=== PATIENT | male | born 1950 | race Caucasian/White ===

== ENCOUNTER 2017-01-01 19:21 | Emergency (ER) | payer MEDICARE, OTHER ==
[~2017-01-01] VITALS: Ht 195.6 cm; Wt 123.7 kg
[2017-01-01 19:23] VITALS: BP 137/77
[2017-01-01] MEDS ORDERED: LIDOCAINE 1%, 20ML SQ ONE (20:00)
[2017-01-01] MEDS ORDERED: LIDOCAINE 1%, 20ML ONE ×2 (20:33→22:26)
[2017-01-01] MEDS ORDERED: BUPIVACAINE 0.25% ONE (20:38)
[2017-01-01] MEDS ORDERED: BUPIVACAINE 0.25% INFIL ONE (21:30)
[2017-01-01] MEDS ORDERED: DIPH,PERTUSS(ACELL),TET VAC/PF 0.5 ML IM-VACC ONE ×2 (21:30→21:43)
[2017-01-01] MEDS ORDERED: CEFAZOLIN 1,000 MG ONE (22:25)
[2017-01-01] MEDS ORDERED: ONDANSETRON ODT 4 MG ONE (22:25)
[2017-01-01] MEDS ORDERED: OXYcodone/APAP 5/325MG TABLET ONE (22:25)
[2017-01-01] MEDS ORDERED: ONDANSETRON ODT 4 MG PO ONE (22:30)
[2017-01-01] MEDS ORDERED: CEFAZOLIN 1,000 MG IM ONE (22:30)
[2017-01-01] MEDS ORDERED: OXYcodone/APAP 5/325MG TABLET PO ONE (22:30)
== END 2017-01-01 22:48 | disposition home or self-care (01) ==
LOC: ED 22:42
DX: S92.421A Displaced fracture of distal phalanx of right great toe, initial encounter for closed fracture (principal); S91.211A Laceration without foreign body of right great toe with damage to nail, initial encounter; W20.8XXA Other cause of strike by thrown, projected or falling object, initial encounter; Y93.89 Activity, other specified; Y92.89 Other specified places as the place of occurrence of the external cause; Y99.8 Other external cause status
CPT/HCPCS: 11760; 73660; 90471; 90715; 96372; 99284; J0690; Q0162

== ENCOUNTER 2017-01-11 11:56 | Emergency (ER) | payer MEDICARE ==
[~2017-01-11] VITALS: Ht 195.6 cm; Wt 123.9 kg
[2017-01-11 12:11] VITALS: BP 136/89
== END 2017-01-11 12:43 | disposition home or self-care (01) ==
LOC: ED 12:10
DX: S91.112D Laceration without foreign body of left great toe without damage to nail, subsequent encounter (principal); W20.8XXD Other cause of strike by thrown, projected or falling object, subsequent encounter; Y92.89 Other specified places as the place of occurrence of the external cause; Y99.8 Other external cause status
CPT/HCPCS: 99281

== ENCOUNTER 2018-10-25 11:36 | Emergency (ER) | payer MEDICARE ==
[~2018-10-25] VITALS: Ht 195.6 cm; Wt 118.0 kg
[2018-10-25 12:30] LABS: BASOPHILS # (AUTO) 0.01 x10^3/uL (0-0.1); BASOPHILS % (AUTO) 0 % (0-1); EOSINOPHILS # (AUTO) 0.13 x10^3/uL (0-0.4); EOSINOPHILS % (AUTO) 2 % (1-7); LYMPHOCYTES # (AUTO) 1.18 x10^3/uL (1-3.4); LYMPHOCYTES % (AUTO) 18 % (22-44); MD NO; MEAN CORPUSCULAR HEMOGLOBIN 30.4 pg (27.5-34.5); MEAN CORPUSCULAR HGB CONC 33.4 g/dL (33.2-36.2); MEAN PLATELET VOLUME 8.2 fL (7.4-10.4); MONOCYTES # (AUTO) 0.52 x10^3/uL (0.2-0.8); MONOCYTES % (AUTO) 8 % (2-9); NEUTROPHILS # (AUTO) 4.55 x10^3/uL (1.8-6.8); NEUTROPHILS % (AUTO) 71 % (42-75); PLATELET COUNT 248 x10^3/uL (130-400); RED BLOOD COUNT 5.18 x10^6/uL (4.38-5.82); RED CELL DISTRIBUTION WIDTH 13.9 % (9.4-14.8)
[2018-10-25] MEDS ORDERED: SODIUM CHLORIDE FLUSH 10ML SYR IVF ONE (12:30)
[2018-10-25 12:40] LABS: INTERNATIONAL NORMALIZED RATIO 0.93 (0.93-1.1); PROTHROMBIN TIME 9.8 Seconds (9.6-11.5)
--- NOTE | 2018-10-25 12:42 | NUR ---
ESL INSTRUCTIONAL ASSISTANT: PT TO ROOM FROM NICOLE RICHTER
[2018-10-25 12:43] LABS: ALANINE AMINOTRANSFERASE 22 U/L (12-78); ALBUMIN 3.6 g/dL (3.4-5.0); ANION GAP 5 mmol/L (5-15); CALCIUM 8.9 mg/dL (8.5-10.1); CHLORIDE 107 mmol/L (98-107); CREATININE 1.14 mg/dL (0.7-1.3)
[2018-10-25 12:46] LABS: ALKALINE PHOSPHATASE 54 U/L (45-117); BILIRUBIN,TOTAL 1.1 mg/dL (0.2-1.0); TOTAL PROTEIN 7.1 g/dL (6.4-8.2)
--- NOTE | 2018-10-25 12:48 | NUR ---
PATIENT PRESENTS TO ED TODAY FOR RECTAL BLEEDING (BRIGHT RED) WHILE WIPING. LAST BM TODAY, PATIENT DENIES STRAINING/CONSTIPATION. AWAITING MD ORDERS CALL LIGHT WITHIN REACHSAPNA. SPOUSE AT BEDSIDE.
--- NOTE | 2018-10-25 13:17 | NUR ---
LAB RESULTS BACK, IV ESTABLISHED, PATIENT SITTING IN RWALDRON SPEAKING WITH MD AT BEDSIDE, VS UPDATED IN CHART.
[2018-10-25 14:03] VITALS: BP 107/62
--- NOTE | 2018-10-25 14:03 | NUR ---
Patient/Caregiver given discharge instructions and they have confirmed that they understand the instructions. Patient ambulatory with steady gait.
== END 2018-10-25 14:05 | disposition home or self-care (01) ==
LOC: ED 13:04
DX: K64.8 Other hemorrhoids (principal)
CPT/HCPCS: 36415; 80053; 85025; 85610; 85730; 99283

== ENCOUNTER 2019-08-04 17:41 | Emergency (ER) | payer MEDICARE ==
[~2019-08-04] VITALS: Ht 195.6 cm; Wt 120.0 kg
--- NOTE | 2019-08-04 18:04 | NUR ---
Pt states he had a MGLF after he tripped over a dog today. Pt c/c rt shoulder pain and slight deformity after falling. Pt currently denies need for pain medications. Awaiting ERMD assessment. Will follow orders.
--- NOTE | 2019-08-04 18:31 | NUR ---
Pt back from imaging, at [facility], awaiting results. Pt continues to deny need for pain medications. Cont to monitor.
[2019-08-04 18:36] VITALS: BP 145/67
--- NOTE | 2019-08-04 19:00 | NUR ---
Report given to Nuria FLORES.
--- NOTE | 2019-08-04 19:06 | NUR ---
Report received from SANDRA Starks
--- NOTE | 2019-08-04 19:40 | NUR ---
Patient given discharge instructions and they have confirmed that they understand the instructions. Patient ambulatory with steady gait.
== END 2019-08-04 19:48 | disposition home or self-care (01) ==
LOC: ED 19:08
DX: S43.121A Dislocation of right acromioclavicular joint, 100%-200% displacement, initial encounter (principal); S40.211A Abrasion of right shoulder, initial encounter; W01.0XXA Fall on same level from slipping, tripping and stumbling without subsequent striking against object, initial encounter; Y93.K1 Activity, walking an animal; Y92.410 Unspecified street and highway as the place of occurrence of the external cause; Y99.8 Other external cause status
CPT/HCPCS: 29105; 99283